=== PATIENT | female | born 1990 | race Caucasian/White ===

== ENCOUNTER 2016-10-19 16:47 | Emergency (ER) | payer OTHER | END 2016-10-19 18:51 | disposition left against medical advice (07) | LOC: ER 16:47 | DX: Z53.21 Procedure and treatment not carried out due to patient leaving prior to being seen by health care provider (principal) | CPT/HCPCS: 87502 ==

== ENCOUNTER 2016-11-20 20:59 | Emergency (ER) | payer OTHER | END 2016-11-21 01:51 | disposition home or self-care (01) | LOC: ER 20:59 | DX: R10.9 Unspecified abdominal pain (principal); R11.0 Nausea | CPT/HCPCS: 96374; 96375; J1885 ==